=== PATIENT | female | born 1930 | race Caucasian/White ===

== ENCOUNTER 2017-12-23 11:58 | Outpatient (CLI) | payer MEDICARE ==
[2017-12-23 12:56] LABS: ALT (SGPT) 9 U/L (8-55); AST (SGOT) 13 U/L (5-34); Alkaline Phosphatase 77 U/L (40-150); Anion Gap 12 mmol/L (10-20); BUN (Urea Nitrogen) 9 mg/dL (9.8-20.1); Bilirubin, Total 0.4 mg/dL (0.2-1.2); Calc. Creatinine Clearance 0 mL/min (70-130); Calcium 9.3 mg/dL (7.8-10.44); Carbon Dioxide 28 mmol/L (23-31); Cardiac Risk 2.7 (Less than 4.5); Chloride 105 mmol/L (98-107); Cholesterol 147 mg/dl (< 200 Desired); Estimated GFR-MDRD 73; Globulin 2.5 g/dL (2.4-3.5); Glucose 93 mg/dL (83-110); HDL Cholesterol 54 mg/dL (>60 Neg Risk); LDL Cholesterol, Calculated 74 mg/dL; Potassium 4.1 mmol/L (3.5-5.1); Protein, Total 6.5 g/dL (6.0-8.3); Sodium 141 mmol/L (136-145); Triglycerides 94 mg/dL (Less than 150)
[2017-12-23 13:14] LABS: Free T4 (Free Thyroxine) 1.16 ng/dL (0.70-1.48); Thyroid Stimulating Hormone 1.6896 uIU/mL (0.35-4.94)
--- NOTE | 2017-12-23 13:56 | RAD ---
3 VIEWS RIGHT KNEE: Date: 12/23/17 COMPARISON: None. HISTORY: Severe right knee pain. FINDINGS: Three views of the right knee show no evidence of acute fracture or dislocation. Mild osteophytes are seen in the patellofemoral compartment. No knee effusion is seen. Vascular calcifications are seen. IMPRESSION: Mild right knee osteoarthritis without acute osseous abnormality. POS: [facility]
== END 2017-12-23 11:59 | disposition home or self-care (01) ==
LOC: SCSRAD 11:58
PROVIDERS: ATTEND Family Medicine
DX: M25.561 Pain in right knee (principal); E03.9 Hypothyroidism, unspecified
CPT/HCPCS: 36415; 80053; 80061; 84439; 84443

== ENCOUNTER 2018-04-24 08:49 | Outpatient (CLI) | payer MEDICARE ==
--- NOTE | 2018-04-24 10:19 | ULT ---
CAROTID ULTRASOUND WITH HERNANDEZ SCALE AND DOPPLER DUPLEX COLOR FLOW IMAGING SPECTRAL ANALYSIS PERFORMED: CLINICAL INDICATION: Stenosis, vascular disease. FINDINGS: There is mild scattered atherosclerotic calcification of the carotid arteries. PEAK SYSTOLIC VELOCITY (CM/S): Right CCA 60 Left CCA 68 Right ICA 173 Left ICA 117 There is antegrade flow within the visualized bilateral vertebral arteries. IMPRESSION: 1. Elevated velocity of right internal carotid artery indicating moderate (50-69% stenosis). 2. No hemodynamically significant stenosis of the left internal carotid artery. POS: [facility]
--- NOTE | 2018-04-24 10:25 | ULT ---
SONOGRAM ABDOMEN: History: Abdominal pain. FINDINGS: Gallbladder has a normal appearance. Common duct is 0.4 cm. An oval 1.4 cm cyst is associated with th e inferior cortex of the right kidney. The spleen, left kidneys, and visualized portions of the abdom inal aorta, IVC, and pancreas have a normal sonographic appearance. IMPRESSION: No significant abnormalities are demonstrated. POS: [facility]
== END 2018-04-24 08:50 | disposition home or self-care (01) ==
LOC: SCSULT 08:49
PROVIDERS: ATTEND Family Medicine
DX: R10.9 Unspecified abdominal pain (principal); I65.23 Occlusion and stenosis of bilateral carotid arteries
CPT/HCPCS: 76700; 93880

== ENCOUNTER 2018-10-30 05:44 | Observation (INO) | payer MEDICARE ==
[2018-10-30 06:43] LABS: #Basophils 0.1 thou/uL (0.0-0.2); #Eosinphils 0.1 thou/uL (0.0-0.7); #Monocytes 0.4 thou/uL (0.11-0.59); #Neutrophils 4.1 thou/uL (1.40-6.50); %Basophils 1.3 % (0.0-1.0); %Eosinophils 1.5 % (0.0-10.0); %Lymphocytes 45.7 % (21.0-51.0); %Neutrophils 46.5 % (42.0-75.0); Mean Corpuscular HGB CONC 34.8 g/dL (32.0-36.0); Mean Corpuscular Hemoglobin 30.9 pg (27.0-31.0); Mean Corpuscular Volume 88.8 fL (78.0-98.0); Mean Platelet Volume 6.9 fL (7.4-10.4); Platelet Count 223 thou/uL (130-400); RBC Distribution Width 12.4 % (11.5-14.5); Red Blood Cell (RBC) Count 3.89 mill/uL (4.20-5.40); White Blood Cell (WBC) Count 8.8 thou/uL (4.8-10.8)
[2018-10-30 06:52] LABS: ALT (SGPT) 8 U/L (8-55); AST (SGOT) 10 U/L (5-34); Albumin 3.6 g/dL (3.4-4.8); Alkaline Phosphatase 65 U/L (40-150); Anion Gap 11 mmol/L (10-20); BUN (Urea Nitrogen) 11 mg/dL (9.8-20.1); Bilirubin, Total 0.5 mg/dL (0.2-1.2); Calc. Creatinine Clearance 0 mL/min (70-130); Calcium 8.9 mg/dL (7.8-10.44); Carbon Dioxide 25 mmol/L (23-31); Chloride 104 mmol/L (98-107); Estimated GFR-MDRD 84; Globulin 2.3 g/dL (2.4-3.5); Glucose 93 mg/dL (83-110); Lipase 14 U/L (8-78); Magnesium 2.3 mg/dL (1.6-2.6); Potassium 4.2 mmol/L (3.5-5.1); Protein, Total 5.9 g/dL (6.0-8.3); Sodium 136 mmol/L (136-145)
--- NOTE | 2018-10-30 07:34 | RAD ---
EXAM: Single view of the chest HISTORY: Chest pain COMPARISON: None FINDINGS: Single view of the chest shows an enlarged cardiomediastinal silhouette. Atherosclerotic c alcifications are seen in the aorta. There is no evidence of consolidation, mass, or pleural effusion. The bones are unremarkable. IMPRESSION: Cardiomegaly
[2018-10-30 08:06] LABS: Bilirubin Negative (Negative); Blood, Urine Trace (Negative); Clarity Cloudy (Clear); Glucose, Urine (Dipstick) Negative (Negative); Leukocyte Large (Negative); Nitrite Negative (Negative); Protein, Urine (Dipstick) Negative (Neg-Trace); Specific Gravity, Urine 1.015 (1.005-1.030); Urobilinogen 0.2 mg/dL (0.2-1.0); pH, Urine 8.5 (5.0-9.0)
[2018-10-30 08:15] LABS: Bacteria/HPF 2+ HPF (None Seen); Crystals/HPF 2+ AMORPH PHOS HPF (Negative); Hyaline Casts/LPF NONE SEEN LPF (0-3 Hyaline); Renal Epithelial 0-3 HPF (0-3); Squamous Epithelial 21-50 HPF (0-3); WBC/HPF 21-50 HPF (0-3)
[2018-10-30] MEDS ORDERED: Aspirin Chewable 81 MG TAB ONE (08:34)
[2018-10-30 10:07] VITALS: BMI 31.1
[2018-10-30] MEDS ORDERED: Ondansetron PF 4 MG/2 ML Vial IVP PRN (10:07)
[2018-10-30] MEDS ORDERED: Ondansetron ODT 4 MG TAB PO PRN (10:07)
[2018-10-30 11:21] LABS: Troponin I Less than 0.010 ng/mL (< 0.028)
[2018-10-30 14:02] LABS: Troponin I 0.011 ng/mL (< 0.028)
[2018-10-30] MEDS ORDERED: hydrALAZINE 20 MG/ML VIAL SLOW IVP PRN (16:46)
[2018-10-30] MEDS ORDERED: Meloxicam 7.5 MG TAB PO PRN (16:46)
[2018-10-30] MEDS ORDERED: Acetaminophen 650 MG Suppository PR PRN (16:47)
[2018-10-30] MEDS ORDERED: Acetaminophen 325 MG TAB PO PRN (16:47)
--- NOTE | 2018-10-30 18:27 | HP ---
CHIEF COMPLAINT: Abdominal discomfort with nausea. HISTORY OF PRESENT ILLNESS: Ms. Coto is a very pleasant 88-year-old woman, who was taken to the [facility] ER by her daughter who was concerned for symptoms she experienced in early hours this morning. The patient states that she woke up at approximately 2 a.m. with generalized discomfort in her abdomen and nausea. This lasted for approximately 2 hours. The patient states she did not take anything for it and it settled on its own. She called her daughter around 5 a.m. asking her to cancel appointments that were scheduled for today due to not sleeping well with the episode of discomfort during the early hours. She denies having any recurrent symptoms. She did report having numbness and cold sensation in the bilateral legs, but states this happens often and when she touches her legs, they actually feel warm. 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 When seen at [facility] ER, she underwent investigations including a chest x-ray that showed cardiomegaly and laboratory studies were done, which showed an elevated BNP of 596. Initial troponin was done and negative. The patient's daughter states that Dr. Aragon offered to admit her in order to have her undergo further cardiac investigations due to the elevated BNP. The patient agreed. Therefore, she was transferred here. She denies experiencing any chest pain or shortness of breath. Has not had any epigastric or lower sternal discomfort. She states she is not interested in undergoing any type of invasive procedures. REVIEW OF SYSTEMS: She states she has been very well in recent days. Reports having chronic issues with constipation since she was 7 and manages this with stool softeners. She has been kept n.p.o. since leaving [facility] ER due to potential cardiac investigations. The patient is very eager to eat. Denies having any nausea or vomiting. Reports having a normal bowel movement yesterday that was very large and soft without any melena or bright red blood per rectum. Denies any urinary symptoms. Has not had any weakness. No lower leg swelling or edema. No recent fevers, chills, or sweats. No cough or hemoptysis. All other review of systems are negative. ALLERGIES: TRAMADOL. CURRENT MEDICATIONS: 1. Atenolol. 2. Levothyroxine. 3. Lovastatin. 4. Meloxicam. 5. Prazosin. PAST MEDICAL HISTORY: 1. Hypothyroidism. 2. Hypertension. PAST SURGICAL HISTORY: 1. Carotid endarterectomy. 2. Hysterectomy. 3. Tonsillectomy. SOCIAL HISTORY: Denies any tobacco use. Denies any alcohol use or illicit drug use. PHYSICAL EXAMINATION: GENERAL: The patient appears well developed, well nourished, is in no acute distress. VITAL SIGNS: Temperature 98.4, pulse 60, respirations 18, O2 saturation 96% on room air, and blood pressure 138/79. HEENT: Normocephalic and atraumatic. Pupils are equal, round, and reactive to light. Sclerae are without icterus. Oropharynx is clear. NECK: Supple. No lymphadenopathy. LUNGS: Clear to auscultation bilaterally. CARDIAC: Regular rate and rhythm. ABDOMEN: Soft, nontender, and nondistended. Normoactive bowel sounds present. EXTREMITIES: No lower leg swelling or edema. She does have sensitivity due to long-standing neuropathy. NEUROLOGIC: Alert and oriented x3. No neuro deficits. SKIN: Without rash or jaundice. LABORATORY DATA: White blood count 8.8, hemoglobin 12, hematocrit 34.6, and platelets 223. Sodium 136, potassium 4.2, BUN 11, creatinine 0.66, GFR 84, glucose 93, lactic acid 0.7, calcium 8.9, magnesium 2.3, total bilirubin 0.5, AST 10, ALT 8, and alkaline phosphatase 65. Troponin negative x3. BNP 596, no previous level to compare to. Albumin 3.6. Lipase 14. Urinalysis positive for trace blood, leukocyte esterase large, 21 to 50 white blood cells, 21 to 50 squamous epithelial cells, transitional epithelial cells 7 to 10, and 2+ urine bacteria. IMAGING DATA: Chest x-ray showed cardiomegaly. No evidence of consolidation, mass or pleural effusion. IMPRESSION AND PLAN: Ms. Coto is an 88-year-old woman, who has according to her daughter been referred for cardiac investigations due to an elevated BNP. The patient did not experience any chest pain or shortness of breath at any given time. She is undergoing workup for the followin. Elevated BNP. We do not have any records and the patient states she has not had any cardiac investigations for several years. She does not follow with a rn advanced currently, but does see Dr. Mccann regularly. We will obtain an echocardiogram as per Dr. Edwards's recommendation. 2. Constipation. The patient with no further abdominal discomfort, did have increased flatus during the episode of abdominal discomfort early this morning. We will resume a heart healthy diet and resume stool softeners. 3. Hypertension. Monitor blood pressure. We will resume home medications. P.r.n. IV hydralazine ordered. 4. Gastrointestinal prophylaxis. 5. Deep venous thrombosis prophylaxis. 6. Code status, full code. Her surrogate decision maker is Carol Vaughn, her daughter. The patient's case was discussed with Dr. Edwards who agrees upon care as described above. Job ID: [id number]
[2018-10-30] MEDS: Senokot S 8.6-50 MG TAB PO SCH (20:26)
[2018-10-30] MEDS: Famotidine/PF 20 mg/2ml Vial SLOW IVP SCH (20:26)
[2018-10-30] MEDS ORDERED: Atorvastatin Calcium 10 MG TAB PO SCH (21:00)
[2018-10-30] MEDS ORDERED: Atenolol 25 MG TAB PO SCH (21:00)
[2018-10-30] MEDS ORDERED: Prazosin HCl 1 MG CAP PO SCH (21:00)
[2018-10-31 06:20] LABS: Anion Gap 11 mmol/L (10-20); BUN (Urea Nitrogen) 12 mg/dL (9.8-20.1); Calc. Creatinine Clearance 68 mL/min (70-130); Calcium 8.8 mg/dL (7.8-10.44); Carbon Dioxide 24 mmol/L (23-31); Chloride 103 mmol/L (98-107); Estimated GFR-MDRD 81; Glucose 83 mg/dL (83-110); Potassium 4.1 mmol/L (3.5-5.1); Sodium 134 mmol/L (136-145)
[2018-10-31 08:21] VITALS: BP 132/61; TEMP 97.4
[2018-10-31 08:26] LABS: Hemoglobin 11.8 g/dL (12.0-16.0); Mean Corpuscular HGB CONC 33.5 g/dL (32.0-36.0); Mean Corpuscular Hemoglobin 30.4 pg (27.0-31.0); Mean Corpuscular Volume 90.7 fL (78.0-98.0); Mean Platelet Volume 7.6 fL (7.4-10.4); Platelet Count 204 thou/uL (130-400); RBC Distribution Width 11.9 % (11.5-14.5); White Blood Cell (WBC) Count 8.2 thou/uL (4.8-10.8)
[2018-10-31 08:56] LABS: Eosinophils 1 % (0-10); Lymphocytes 56 % (21-51); MDiff Complete? YES; Monocytes 3 % (0-10); Neutrophil 39 % (42-75); RBC Morphology Normal; Reactive Lymphocytes 1 % (0-10)
[2018-10-31] MEDS ORDERED: Levothyroxine Sodium 75 MCG TAB PO SCH (09:00)
[2018-10-31] MEDS: Famotidine/PF 20 mg/2ml Vial SLOW IVP SCH (09:19)
[2018-10-31] MEDS: Senokot S 8.6-50 MG TAB PO SCH (09:19)
== END 2018-10-31 09:30 | disposition home or self-care (01) ==
LOC: SCSER 05:44 → 2SW 09:28
PROVIDERS: ADMIT Family Medicine; ATTEND Family Medicine
DX: R79.89 Other specified abnormal findings of blood chemistry (principal); K59.00 Constipation, unspecified; R10.9 Unspecified abdominal pain; R11.0 Nausea; G62.9 Polyneuropathy, unspecified; I10 Essential (primary) hypertension; E03.9 Hypothyroidism, unspecified; Z79.899 Other long term (current) drug therapy; Z88.5 Allergy status to narcotic agent
CPT/HCPCS: 71045; 80048; 80053; 83605; 83690; 83735; 83880; 84484 ×2; 85025 ×2; 93005; 99285; G0378; 36415; 81003; 81015; S0028

== ENCOUNTER 2018-11-14 13:19 | Outpatient (CLI) | payer MEDICARE | END 2018-11-14 13:20 | disposition home or self-care (01) | LOC: ULT 13:19 | PROVIDERS: ATTEND Family Medicine | DX: I10 Essential (primary) hypertension (principal); R79.89 Other specified abnormal findings of blood chemistry; I08.3 Combined rheumatic disorders of mitral, aortic and tricuspid valves | CPT/HCPCS: 93306 ==